=== PATIENT | female | born 1930 | race Caucasian/White ===

== ENCOUNTER 2021-06-10 08:22 | Emergency (ER) | payer MEDICARE, OTHER ==
[~2021-06-10 08:22] MED LIST: BROVANA15 MCG/2 M INH; CILOSTAZOL50 MG PO; ECOTRIN81 MG PO; FLONASE 0.05% N16 GM; K-DUR TAB 20 M20 MEQ PO; LASIX80 MG PO; LEVAQUIN500 MG PO; MEDROL TAB 4 MG4 MG PO; MEDROL4 MG PO; NEURONTIN 100100 MG PO; NORVASC 5 MG TAB5 MG PO; PRINIVIL10 MG PO; PROAIR HFA8.5 GM INH; PULMICORT0.5 MG/21 INH; ROPINIROLE HCL1 MG PO; SINGULAIR10 MG PO; SPIRIVA RESPIMAT4 GM INH; SYNTHROID75 MCG PO; VENTOLIN HFA 66.7 GM INH; ZOCOR40 MG PO
[2021-06-10 08:44] LABS: HEMOGLOBIN 12.1 gm/dl (12.3-15.3); RED BLOOD COUNT 4.21 M/UL (4.00-5.10); WHITE BLOOD COUNT 7.2 K/UL (4.5-11.0)
[2021-06-10 10:20] LABS: BUN/CREATININE RATIO 36 (0-10)
[2021-06-10] MEDS ORDERED: OMNICEF 300 MG300 MG PO (10:36)
[2021-06-10] MEDS ORDERED: MEDROL4 MG PO (10:36)
== END 2021-06-10 10:50 | disposition home or self-care (01) ==
LOC: ER1 08:22
PROVIDERS: Emergency Medicine
DX: J44.1 Chronic obstructive pulmonary disease with (acute) exacerbation (principal); I11.0 Hypertensive heart disease with heart failure; I50.9 Heart failure, unspecified; Z20.822 Contact with and (suspected) exposure to COVID-19; F17.200 Nicotine dependence, unspecified, uncomplicated; Z86.79 Personal history of other diseases of the circulatory system; Z95.1 Presence of aortocoronary bypass graft
CPT/HCPCS: 0240U; 36600; 71045; 80053; 81001; 82550; 82553; 82803; 83605; 83880; 84484; 85025; 87040; 93005; 96374; 96375; 99285; J0696; J2930

== ENCOUNTER 2021-07-05 18:56 | Inpatient (IN) | payer MEDICARE, OTHER ==
[~2021-07-05] VITALS: Ht 162.6 cm; Wt 65.8 kg
[~2021-07-05 18:56] MED LIST changes: +OMNICEF 300 MG300 MG PO
[2021-07-05 19:56] LABS: HEMOGLOBIN 11.3 gm/dl (12.3-15.3); RED BLOOD COUNT 3.93 M/UL (4.00-5.10); WHITE BLOOD COUNT 5.4 K/UL (4.5-11.0)
[2021-07-05 20:12] LABS: BUN/CREATININE RATIO 33 (0-10)
[2021-07-06 02:24] LABS: HEMOGLOBIN 11.1 gm/dl (12.3-15.3); RED BLOOD COUNT 3.89 M/UL (4.00-5.10)
[2021-07-06 02:27] LABS: WHITE BLOOD COUNT 2.7 K/UL (4.5-11.0)
[2021-07-06 02:41] LABS: BUN/CREATININE RATIO 31 (0-10)
[2021-07-06] MEDS ORDERED: DALIRESP500 MCG PO (12:38)
[2021-07-06] MEDS ORDERED: ATORVASTATIN CA10 MG PO (12:39)
[2021-07-06] MEDS ORDERED: LORAZEPAM0.5 MG PO (12:39)
[2021-07-06] MEDS ORDERED: ALBUTEROL2.5 MG/3 M INH (12:41)
[2021-07-07 02:35] LABS: RED BLOOD COUNT 4.2 M/UL (4.00-5.10)
[2021-07-07 02:42] LABS: WHITE BLOOD COUNT 4.5 K/UL (4.5-11.0)
[2021-07-07 02:48] LABS: BUN/CREATININE RATIO 28 (0-10)
[2021-07-07] MEDS ORDERED: TRAMADOL HCL50 MG PO (14:08)
[2021-07-08 03:27] LABS: HEMOGLOBIN 12.3 gm/dl (12.3-15.3); RED BLOOD COUNT 4.31 M/UL (4.00-5.10); WHITE BLOOD COUNT 5.3 K/UL (4.5-11.0)
[2021-07-09 03:15] LABS: HEMOGLOBIN 12.3 gm/dl (12.3-15.3); RED BLOOD COUNT 4.29 M/UL (4.00-5.10); WHITE BLOOD COUNT 5.7 K/UL (4.5-11.0)
[2021-07-09 04:17] LABS: BUN/CREATININE RATIO 29 (0-10)
[2021-07-10 03:25] LABS: HEMOGLOBIN 11.6 gm/dl (12.3-15.3); RED BLOOD COUNT 4.06 M/UL (4.00-5.10)
[2021-07-10 03:28] LABS: WHITE BLOOD COUNT 7.3 K/UL (4.5-11.0)
[2021-07-10 04:59] LABS: BUN/CREATININE RATIO 32 (0-10)
[2021-07-11 03:08] LABS: HEMOGLOBIN 12.2 gm/dl (12.3-15.3); RED BLOOD COUNT 4.23 M/UL (4.00-5.10)
[2021-07-11 03:18] LABS: WHITE BLOOD COUNT 5.2 K/UL (4.5-11.0)
[2021-07-11 04:20] LABS: BUN/CREATININE RATIO 30 (0-10)
[2021-07-11] MEDS ORDERED: LOW DOSE ASPIRI81 MG PO (11:57)
[2021-07-11] MEDS ORDERED: PREDNISONE10 MG PO (12:00)
[2021-07-11] MEDS ORDERED: MIRALAX17 GM PO (12:00)
[2021-07-11] MEDS ORDERED: PULMICORT0.5 MG/21 INH (12:03)
[2021-07-11] MEDS ORDERED: MUCINEX600 MG PO (12:04)
[2021-07-11] MEDS ORDERED: IPRAT-ALBUT 0.5-3 ML INH (12:05)
== END 2021-07-11 13:09 | DRG 189 ==
LOC: ER1 18:56 → CDU 22:05 → M/S 22:49 → CDU 22:49 → M/S 23:19
PROVIDERS: Internal Medicine; Student in an Organized Health Care Education/Training Program; ADMIT Internal Medicine
PROC: B24BZZZ Ultrasonography of Heart with Aorta (ICD-10-PCS; principal; 2021-07-06)
DX: J96.21 Acute and chronic respiratory failure with hypoxia (principal); J44.1 Chronic obstructive pulmonary disease with (acute) exacerbation; I50.32 Chronic diastolic (congestive) heart failure; L03.116 Cellulitis of left lower limb; Z20.822 Contact with and (suspected) exposure to COVID-19; I25.10 Atherosclerotic heart disease of native coronary artery without angina pectoris; F41.9 Anxiety disorder, unspecified; Z66 Do not resuscitate; E03.9 Hypothyroidism, unspecified; E78.5 Hyperlipidemia, unspecified; I11.0 Hypertensive heart disease with heart failure; F17.210 Nicotine dependence, cigarettes, uncomplicated; Z99.81 Dependence on supplemental oxygen; Z95.1 Presence of aortocoronary bypass graft; Z98.49 Cataract extraction status, unspecified eye
CPT/HCPCS: ECHO; 36415; 36600; 71045; 71260; 80048; 80053; 80202; 82550; 82553; 82803; 83735; 83880; 84100; 84484; 85025; 85027; 93005; 93306; 93971; 94640; 94664; 94760; 97110; 97110-GP-CQ; 97116-GP-CQ; 97162; 97166; 97530; 99285; J1650; J1940; J2543; J2920; J3370; J7070; Q9967; U0002

== ENCOUNTER 2021-09-21 22:09 | Emergency (ER) | payer MEDICARE, OTHER ==
[~2021-09-21 22:09] MED LIST changes: +ALBUTEROL2.5 MG/3 M INH; +ATORVASTATIN CA10 MG PO; +DALIRESP500 MCG PO; +IPRAT-ALBUT 0.5-3 ML INH; +LORAZEPAM0.5 MG PO; +LOW DOSE ASPIRI81 MG PO; +MIRALAX17 GM PO; +MUCINEX600 MG PO; +PREDNISONE10 MG PO; +TRAMADOL HCL50 MG PO
[2021-09-21 22:40] LABS: RED BLOOD COUNT 3.81 M/UL (4.00-5.10); WHITE BLOOD COUNT 6.4 K/UL (4.5-11.0)
[2021-09-21 23:30] LABS: BUN/CREATININE RATIO 27 (0-10)
[2021-09-22] MEDS ORDERED: OMNICEF 300 MG300 MG PO (03:08)
== END 2021-09-22 03:40 | disposition home or self-care (01) ==
LOC: ER1 22:09
PROVIDERS: Student in an Organized Health Care Education/Training Program
DX: R10.9 Unspecified abdominal pain (principal); J44.0 Chronic obstructive pulmonary disease with (acute) lower respiratory infection; J18.9 Pneumonia, unspecified organism; I50.9 Heart failure, unspecified; E78.5 Hyperlipidemia, unspecified; Z95.1 Presence of aortocoronary bypass graft; F17.210 Nicotine dependence, cigarettes, uncomplicated
CPT/HCPCS: 71045; 80053; 81001; 82550; 82553; 83605; 84484; 85025; 85379; 93005; 96374; 96375; 99285; J0696; J1885; Q9967

== ENCOUNTER 2021-09-30 19:56 | Inpatient (IN) | payer MEDICARE, OTHER ==
[~2021-09-30] VITALS: Ht 162.6 cm; Wt 69.9 kg
[2021-09-30 20:09] LABS: HEMOGLOBIN 11.5 gm/dl (12.3-15.3); RED BLOOD COUNT 4.01 M/UL (4.00-5.10); WHITE BLOOD COUNT 7.5 K/UL (4.5-11.0)
[2021-09-30 20:36] LABS: BUN/CREATININE RATIO 26 (0-10)
[2021-10-01 05:56] LABS: HEMOGLOBIN 11.7 gm/dl (12.3-15.3); RED BLOOD COUNT 4.12 M/UL (4.00-5.10)
[2021-10-01 06:08] LABS: WHITE BLOOD COUNT 3.6 K/UL (4.5-11.0)
[2021-10-01 06:16] LABS: BUN/CREATININE RATIO 29 (0-10)
[2021-10-01] MEDS ORDERED: CILOSTAZOL50 MG PO (11:44)
[2021-10-01] MEDS ORDERED: PROAIR HFA8.5 GM INH (11:45)
[2021-10-01] MEDS ORDERED: ENTRESTO 49 MG1 EACH PO (11:46)
[2021-10-01] MEDS ORDERED: LORAZEPAM0.5 MG PO (11:47)
[2021-10-01] MEDS ORDERED: SPIRIVA RESPIMAT4 GM INH (11:51)
[2021-10-02 06:52] LABS: HEMOGLOBIN 11.4 gm/dl (12.3-15.3); RED BLOOD COUNT 4.02 M/UL (4.00-5.10); WHITE BLOOD COUNT 3.6 K/UL (4.5-11.0)
[2021-10-02 07:26] LABS: BUN/CREATININE RATIO 34 (0-10)
[2021-10-03 06:25] LABS: HEMOGLOBIN 11.6 gm/dl (12.3-15.3); RED BLOOD COUNT 4.08 M/UL (4.00-5.10); WHITE BLOOD COUNT 6.5 K/UL (4.5-11.0)
[2021-10-03 06:52] LABS: BUN/CREATININE RATIO 42 (0-10)
[2021-10-03] MEDS ORDERED: HYDROCODON-ACE1 EAC2 PO (09:58)
[2021-10-03] MEDS ORDERED: DURAGESIC 12 M1 EACH TOP (09:58)
== END 2021-10-03 12:45 | disposition home or self-care (01) | DRG 189 ==
LOC: ER1 19:56 → CDU 21:09 → MED SURG 4 21:09 → CDU 23:00 → MED SURG 4 23:15
PROVIDERS: Family Medicine; Internal Medicine; ADMIT Family Medicine
DX: J96.21 Acute and chronic respiratory failure with hypoxia (principal); J44.1 Chronic obstructive pulmonary disease with (acute) exacerbation; I50.22 Chronic systolic (congestive) heart failure; C34.92 Malignant neoplasm of unspecified part of left bronchus or lung; Z20.822 Contact with and (suspected) exposure to COVID-19; Z66 Do not resuscitate; J96.22 Acute and chronic respiratory failure with hypercapnia; M54.6 Pain in thoracic spine; J20.9 Acute bronchitis, unspecified; I11.0 Hypertensive heart disease with heart failure; M19.90 Unspecified osteoarthritis, unspecified site; E78.5 Hyperlipidemia, unspecified; I87.8 Other specified disorders of veins; Z99.81 Dependence on supplemental oxygen; Z51.5 Encounter for palliative care; Z79.01 Long term (current) use of anticoagulants; Z79.82 Long term (current) use of aspirin; Z71.6 Tobacco abuse counseling
CPT/HCPCS: 36415; 36600; 71045; 72070; 72100; 80048; 80053; 82550; 82553; 82803; 84484; 85025; 85027; 86140; 93005; 94640; 94664; 94760; 96374; 99285; J2920; J2930